=== PATIENT | female | born 1980 | race Caucasian/White ===

== ENCOUNTER 2017-08-30 10:42 | Outpatient (CLI) | payer BC | END 2017-08-30 10:43 | disposition home or self-care (01) | LOC: DTY/OP 10:42 | PROVIDERS: ATTEND Specialist | DX: Z01.818 Encounter for other preprocedural examination (principal); E66.01 Morbid (severe) obesity due to excess calories | CPT/HCPCS: 97802 ==

== ENCOUNTER 2017-09-16 11:27 | Outpatient (CLI) | payer BC ==
[2017-09-16 13:00] LABS: Anion Gap 10 mmol/L (10-20); BUN (Urea Nitrogen) 20 mg/dL (7.0-18.7); Calc. Creatinine Clearance 0 mL/min (70-130); Calcium 10.1 mg/dL (7.8-10.44); Carbon Dioxide 26 mmol/L (22-29); Chloride 104 mmol/L (98-107); Estimated GFR-MDRD Greater than 90
== END 2017-09-16 11:28 | disposition home or self-care (01) ==
LOC: LABBT 11:27
PROVIDERS: ATTEND Specialist
DX: Z01.818 Encounter for other preprocedural examination (principal); E66.01 Morbid (severe) obesity due to excess calories
CPT/HCPCS: 80048; 93005; 93010

== ENCOUNTER 2017-09-16 12:00 | Inpatient (IN) | payer BC ==
--- NOTE | 2017-09-13 14:59 | HP ---
HISTORY OF PRESENT ILLNESS: Bree Corrigan is a 36-year-old female followed Dr. Nigel Donovan and Jena Menjivar, PA moved to this area in 2013. She has had numerous weight loss efforts withou t durable success. She has researched on her own and attended our bariatric seminar and is interest ed in laparoscopic sleeve gastrectomy. She has comorbidities of reflux only occurring since she has been obese prior to becoming overweight. She did not have reflux. She takes PPIs controlling her reflux. She knows her reflux is worse as she gains weight. She has trouble with her weight most of her life and suffers arthralgias, back pain, sleep apnea symptoms, hypertension and wants to have m ore active life and not suffer the comorbidities associated with obesity. Her is very suppo rtive in her weight loss efforts and bariatric endeavors. Although her mother and other family did not live here, they are also very supportive of her bariatric choice. She is interested in laparosc opic sleeve gastrectomy. PAST MEDICAL HISTORY: Hypertension, gastroesophageal reflux disease, on PPIs for the last several y ears controlling her reflux very well. She takes occasional [place] at night. She states her reflux is not severe until she gained weight. She has symptoms of sleep apnea, had a sleep study in [place], it was inconclusive but she knows that as she gains more weight, she has had more dif ficulty breathing. She has problems with degenerative joint disease of the cervical spine, knees an d she is a wearing brace currently for patellar stability. She is undergoing therapy. SOCIAL HISTORY: Patient is treated for bipolar illness. TOBACCO: Tobacco none. Alcohol none. PAST SURGICAL HISTORY: In 2001, wisdom teeth extraction; in 2004, breast reduction; in 2007, tubal ligation; in 2009, hysterectomy without oophorectomy; in 2011, cholecystectomy; in 2012, appendectom y; in 2011, finger tendon and nerve repair; in 2012, pilonidal cyst resection; in 2013, sinuplasty; in 2014, cervical spinal fusion; in 2015, right oophorectomy. MEDICATIONS: Protonix 40 mg a day, spironolactone 50 mg twice a day, Rachel 180 mg p.m., Prozac 30 mg p.m., Topamax 25 mg a day, Lamictal 200 mg p.m., Seroquel XR 150 mg at bedtime, Zocor 10 mg a da y, Flonase twice a day 10 mg. ALLERGIES: VICODIN, PERCOCET, BEE STINGS. REVIEW OF SYSTEMS: Ten point noncontributory. PHYSICAL EXAMINATION: VITAL SIGNS: A 5 feet 5, 130/84, 108, 98.4 degrees, 35.9 BMI, 216 pounds. HEENT: Unremarkable. LUNGS: Clear to auscultation. CARDIAC: Rhythm without murmur or gallop. ABDOMEN: Soft, obese, nontender, no hernias. EXTREMITIES: Unremarkable. SOCIAL HISTORY: The patient is and moved here in 2013. Her is very supportive as i s her family in her bariatric endeavors. She also has exercise-induced asthma. She works at [employer] and stands on her feet most of the day. ASSESSMENT AND PLAN: Morbid obesity, 35.9 BMI 316 pounds. She has tried numerous weight loss effor ts without durable success. Her family is very supportive as is her of her bariatric endeav or. She desires laparoscopic sleeve gastrectomy. She understands the risks and benefits of the pro cedure and consents. She has comorbidities of hypertension, sleep apnea symptoms, arthralgias. Cathryn evans is committed to lifestyle changes and close followup and postoperative support groups to enhanc e success.
--- NOTE | 2017-09-17 05:43 | ADD-HP ---
ADDENDUM HISTORY OF PRESENT ILLNESS: Bree Corrigan is a 37-year-old female who I initially saw on 017 for morbid obesity due to excess calories. COMORBIDITIES: Hypertension, elevated cholesterol, GERD with esophagitis, well controlled medicatio ns, and mild sleep apnea, bipolar affective disorder. BMI on admission 36, 216 pounds. Today visit BMI 36, 209 pounds. SOCIAL HISTORY: The patient has attended a bariatric seminar, met with a dietitian and the psycholo gist and felt to be an excellent candidate. Questions have been answered. She understands the risk s of operation including infection, bleeding, reoperation, and consents. She is dedicated to postop erative followups to optimize success. She hopes to improve her quality of life. Questions have be en answered today. Consents were signed and plan for laparoscopic sleeve gastrectomy next week. Th e exam is unchanged except for 5 foot 4 inches, 216 pounds, 35 BMI. On initial admission today, 209 pounds, 36 BMI. Please see recent history and physical for past history. PHYSICAL EXAMINATION: VUTAL SIGNS: 5 foot 4 inches, 209 pounds, 36 BMI. EYES, EARS, NOSE, AND THROAT: Unremarkable. LUNGS: Clear to auscultation. CARDIAC: Regular rhythm without murmur or gallop. ABDOMEN: Soft, nontender, no masses. EXTREMITIES: Unremarkable. ASSESSMENT AND PLAN: Plan laparoscopic sleeve gastrectomy. She understands the risks and benefits of procedure and consents. Preoperative laboratories obtained and Helicobacter pylori are normal. Thyroid functions are normal. Vitamin D is low at 23 and replacement initiated. White count 4, hem oglobin 13. Comprehensive metabolic profile was normal. Cholesterol 169, triglycerides 47. Iron i s 80. Hemoglobin A1c is 4.8, folate levels 10.2 within normal range. Vitamin B12, 422 within madan l range. Vitamin B1, 147 within normal range.
[2017-09-22] MEDS ORDERED: Heparin 5,000 UNITS/ML VIAL ONE (06:18)
[2017-09-22] MEDS ORDERED: Ketorolac Tromethamine 30 MG/ML VIAL ONE ×2 (06:18→13:09)
[2017-09-22] MEDS ORDERED: CEFAZOLIN/Water 2 GM/20 ML SYRINGE ONE (06:18)
[2017-09-22] MEDS ORDERED: Midazolam HCl 2 mg/2 ml Vial ONE ×2 (06:36→07:04)
[2017-09-22] MEDS ORDERED: Fentanyl 100 MCG/2 ML VIAL ONE ×3 (06:36→13:04)
[2017-09-22] MEDS ORDERED: Bupivacaine PF 0.5% 30 ML VIAL ONE (07:18)
[2017-09-22] MEDS ORDERED: Sodium Chloride 0.9% 100 ML ONE (07:28)
[2017-09-22] MEDS ORDERED: ePHEDrine/0.9% NaCl/PF SYRINGE 50 mg/10 ml ONE (07:55)
[2017-09-22] MEDS ORDERED: Lidocaine 1% PF 5 ML VIAL ONE (07:55)
[2017-09-22] MEDS ORDERED: Glycopyrrolate 0.2 MG/ML 5 ML SYRINGE ONE (07:55)
[2017-09-22] MEDS ORDERED: Propofol 200 MG/20 ML VIAL ONE (07:55)
[2017-09-22] MEDS ORDERED: PHENYLEPHRINE-NS 100 MCG/ML 10 ML SYRINGE ONE (07:55)
[2017-09-22] MEDS ORDERED: Dexamethasone 20 MG/5 ML VIAL ONE (07:55)
[2017-09-22] MEDS ORDERED: Ondansetron HCl/PF 4 MG/2 ML Vial ONE (07:55)
[2017-09-22] MEDS ORDERED: Lidocaine 2% w/Epinephrine 1:200K 20 ML VIAL ONE (08:07)
[2017-09-22] MEDS ORDERED: hydrALAZINE 20 MG/ML VIAL SLOW IVP PRN (09:09)
[2017-09-22] MEDS ORDERED: Ondansetron HCl/PF 4 MG/2 ML Vial IVP PRN (09:09)
[2017-09-22] MEDS ORDERED: diphenhydrAMINE 50 MG/ML VIAL IVP PRN (09:09)
[2017-09-22] MEDS ORDERED: Dextrose 50% Abboject 50 ML SYRINGE SLOW IVP PRN (09:09)
[2017-09-22] MEDS ORDERED: Dextrose 5% in Water 1,000 ML IV PRN (09:09)
[2017-09-22] MEDS ORDERED: Promethazine HCl 25 MG/ML VIAL ONE (09:26)
[2017-09-22] MEDS ORDERED: diphenhydrAMINE 50 MG/ML VIAL ONE (10:57)
--- NOTE | 2017-09-22 11:46 | OP ---
DATE OF PROCEDURE: 09/22/2017 PREOPERATIVE DIAGNOSES: Morbid obesity, 35.9 body mass index, 216 pounds; hypertension; symptoms of sleep apnea; and arthralgias. POSTOPERATIVE DIAGNOSES: Morbid obesity, 35.9 body mass index, 216 pounds; hypertension; symptoms o f sleep apnea; and arthralgias. PROCEDURE: Laparoscopic sleeve gastrectomy, 36 Uzbek bougie, staple line within 3 cm of the pyloru s. SURGEON: John Grande M.D. ANESTHESIA: General. Local 0.25% Marcaine with epinephrine, 60 mL. ESTIMATED BLOOD LOSS: Less than 20 mL. BLOOD TRANSFUSED: None. FINDINGS: Pliable normal liver, normal abdominal cavity, otherwise. PROCEDURE IN DETAIL: The patient was taken to the operating room where in the supine position initi ally then reversed Trendelenburg, abdomen was prepared with ChloraPrep and draped in routine fashion . Local anesthetic infiltrated into skin and subcutaneous tissue about all port sites. Supraumbili pilo incision made at the apex and old supraumbilical scar vertically and carried down through the s kin and subcutaneous tissue. A Veress needle placed percutaneously pneumoperitoneum to 15 mmHg obta ined with the Veress needle, replacing it with a 5 port, video laparoscope inserted. Remainder of t he ports placed under laparoscopic visualization. Bilateral midclavicular subcostal incisions made upper abdomen and the 15 mm port was placed on the patient's left and a 12 port on the patient's rig ht. Bilateral far lateral subcostal incision made and 5 ports placed. Trocar catheter, 5 port used to penetrate the fascia and Brendan liver retractor placed through left subxiphoid stab incision. Liver retracted anteriorly and cephalad exposing the angle of His. LigaSure used to take down the gastrosplenic ligament adjacent to the greater curvature beginning distally and progressing up to t he angle of His, mobilizing the gastrosplenic ligament. Once the entire greater curvature of the st omach had been mobilized up to the angle of His, remaining attachments distally mobilized from the g reater curvature of the stomach within 3 cm of the pylorus. Orogastric tube removed by Anesthesia a nd a 36 Uzbek bougie placed orally into the gastric lumen, visualized laparoscopically, properly po sitioned along the lesser curvature towards the pylorus. A green load staple fire of the antrum per formed within 3 cm of the pylorus, then angled to allow division of the stomach without making it to o tight. A second gold fire performed taking care not to narrow the incisura. Serial fires taken u p towards the angle of His with proper position of the stapler, was carefully visualized and then la paroscopically against the bougie, but not excessively tight leaving enough wound to prevent obstruc tion. Final fires blue load in the upper fundus left lateral to the angle of His to avoid encroachm ent on the esophagus performed completely dividing the stomach removing it through the 15 port and c losing this fascia with [id number] suture of 0 Vicryl GraNee needle visualized laparoscopically . Completion endoscopy performed placing the endoscope per os under direct visualization throughout the esophagus and the gastric sleeve visualizing the pylorus without any obstruction. There was no bleeding. Scope withdrawn, there was no leak. Stomach decompressed and removed. Esophagus appear ed to be normal. Staple line of the gastric sleeve inspected, there was no bleeding. Liver retract or removed under laparoscopic visualization without incident. Pneumoperitoneum and irrigant evacuat ed. All instruments removed and all skin incisions irrigated and approximated with the subdermal 4- 0 Monocryl and DermaGlue applied.
[2017-09-22] MEDS: Acetaminophen 1,000 MG in Premix Bag 1 BAG IVPB SCH ×3 (14:21→23:54)
[2017-09-22] MEDS: Ketorolac Tromethamine 30 MG/ML VIAL IVP SCH ×3 (14:21→23:55)
[2017-09-22 14:28] VITALS: BMI 34.9
[2017-09-22] MEDS: D5 1/2 NS w/20 mEq KCL 1,000 ML IV SCH ×2 (14:34→22:55)
[2017-09-22] MEDS: Fentanyl 100 MCG/2 ML VIAL SLOW IVP PRN ×3 (15:20→20:15)
[2017-09-22] MEDS ORDERED: FLUoxetine HCl 10 MG CAP PO SCH (21:00)
[2017-09-22] MEDS ORDERED: Loratadine 10 MG TAB PO SCH (21:00)
[2017-09-22] MEDS ORDERED: FLU VACC QS2017-18 36 mo. & older 0.5 ML SYRINGE IM ONE (21:00)
[2017-09-22] MEDS ORDERED: Simvastatin 5 MG TAB PO SCH (21:00)
[2017-09-22] MEDS ORDERED: Enoxaparin Sodium 40 MG/0.4 ML SYRINGE SC SCH (21:00)
[2017-09-22] MEDS ORDERED: lamoTRIgine 100 MG TAB PO SCH (21:00)
[2017-09-22] MEDS: Calcium Carbonate 500 MG ChewTAB PO SCH (21:51)
[2017-09-22] MEDS: Spironolactone 25 MG TAB PO SCH (21:51)
[2017-09-22] MEDS: Multivitamin W/ Minerals 1 TAB PO SCH (21:51)
[2017-09-22] MEDS: Topiramate 25 MG TAB PO SCH (21:52)
[2017-09-23] MEDS: Acetaminophen 1,000 MG in Premix Bag 1 BAG IVPB SCH (06:11)
[2017-09-23] MEDS: Ketorolac Tromethamine 30 MG/ML VIAL IVP SCH (06:12)
[2017-09-23 06:49] LABS: #Lymphocytes 1.2 thou/uL (1.20-3.40); #Monocytes 0.7 thou/uL (0.11-0.59); #Neutrophils 7.3 thou/uL (1.40-6.50); %Basophils 0.4 % (0.0-1.0); %Eosinophils 0.4 % (0.0-10.0); %Lymphocytes 13.3 % (21.0-51.0); %Monocytes 7.9 % (0.0-10.0); Hematocrit 38.6 % (36.0-47.0); Mean Platelet Volume 7.8 fL (7.4-10.4); Red Blood Cell (RBC) Count 4.21 mill/uL (4.20-5.40); White Blood Cell (WBC) Count 9.4 thou/uL (4.8-10.8)
[2017-09-23 07:08] LABS: Anion Gap 8 mmol/L (10-20); BUN (Urea Nitrogen) 8 mg/dL (7.0-18.7); Calc. Creatinine Clearance 159 mL/min (70-130); Calcium 8.3 mg/dL (7.8-10.44); Carbon Dioxide 24 mmol/L (22-29); Chloride 110 mmol/L (98-107); Estimated GFR-MDRD Greater than 90
--- NOTE | 2017-09-23 08:40 | RAD ---
LIMITED UPPER GI WITH 15 ML GASTROGRAFIN: Date: 09/23/17 HISTORY: Recent post bariatric surgery, vertical sleeve gastrectomy. FINDINGS: There is prompt passage of contrast from the esophagus into the stomach and proximal small bowel. No contrast extravasation is seen. IMPRESSION: No evidence of obstruction or leak. POS: NADIA
[2017-09-23] MEDS ORDERED: Pantoprazole 40 MG VIAL IVP SCH (09:00)
--- NOTE | 2017-09-23 09:03 | PRG ---
DATE OF SERVICE: 09/23/2017 Ms. Corrigan is doing well after laparoscopic sleeve gastrectomy. Swallow study this morning looked normal. PHYSICAL EXAMINATION: VITAL SIGNS: Temperature 98.3 degrees, 88, 18, 93% saturation, blood pressure 125/75. LUNGS: Clear to auscultation. CARDIAC: Regular rate and rhythm without murmur or gallop. ABDOMEN: Soft, nontender. She complains of pain at the stomach extraction site, left upper quadran t. LABORATORY: White count 9.4, hemoglobin 13. Basic metabolic profile was unremarkable. ASSESSMENT AND PLAN: The patient is doing well status post laparoscopic sleeve gastrectomy. Advanc e diet and discharge home with tramadol trial for oral analgesics, oral Tylenol is effective. Plan discharge home later today if she tolerates liquids.
[2017-09-23] MEDS ORDERED: traMADol HCl 50 MG TAB PO PRN ×2 (09:15)
[2017-09-23] MEDS: Topiramate 25 MG TAB PO SCH (11:28)
--- NOTE | 2017-09-23 11:50 | DIS ---
PREOPERATIVE DIAGNOSES: 1. Morbid obesity, 36.9 body mass index.. 2. Hypertension. 3. Sleep apnea. 4. Arthralgias. PROCEDURES THIS HOSPITALIZATION: Laparoscopic sleeve gastrectomy, 36 Afghan bougie completion endos copy, staple line within 3 cm of the pylorus. HISTORY: Ms. Corrigan underwent preoperative bariatric workup, seen a week prior to her surgery, ad mitted postoperatively after laparoscopic sleeve gastrectomy. Swallow study the next morning was no rmal and she convalesced, tolerated her diet. She has multiple allergies, HYDROCODONE and OXYCODONE . She was given fentanyl perioperatively. She is sent home with Tylenol [id number] tramadol p.r.n. pain. Follow up in my office in 1 week. Diet as explained by preoperative bariatric education course. Ac tivity; encouraged ambulation, up in chair and frequent ambulation.
[2017-09-23] MEDS ORDERED: Acetaminophen 500 MG TAB PO SCH (12:00)
[2017-09-23 12:33] VITALS: BP 114/72; TEMP 97.7
[2017-09-23] MEDS: Calcium Carbonate 500 MG ChewTAB PO SCH (13:03)
[2017-09-23] MEDS: Multivitamin W/ Minerals 1 TAB PO SCH (13:03)
[2017-09-23] MEDS: Spironolactone 25 MG TAB PO SCH (13:03)
== END 2017-09-23 13:55 | disposition home or self-care (01) | DRG 621 ==
LOC: SURG A 09-22 05:36
PROVIDERS: ADMIT Specialist; ATTEND Specialist
PROC: 0DB64Z3 Excision of Stomach, Percutaneous Endoscopic Approach, Vertical (ICD-10-PCS; principal; 2017-09-22)
PROC: 0DJ68ZZ Inspection of Stomach, Via Natural or Artificial Opening Endoscopic (ICD-10-PCS; 2017-09-22)
DX: E66.01 Morbid (severe) obesity due to excess calories (principal); I10 Essential (primary) hypertension; Z68.36 Body mass index [BMI] 36.0-36.9, adult; M25.50 Pain in unspecified joint; E78.00 Pure hypercholesterolemia, unspecified; K21.0 Gastro-esophageal reflux disease with esophagitis; F31.9 Bipolar disorder, unspecified; G47.33 Obstructive sleep apnea (adult) (pediatric)
CPT/HCPCS: 36415; 74241; 80048; 85025; 88307; 88312; 90471; 90682; 90732; 94760; G0008; G0009; J0131; J0694; J1100; J1200; J1644; J1650; J1885; J2001; J2250; J2405; J2550; J2704; J3010; J7050; Q2036; S0020

== ENCOUNTER 2017-12-17 20:58 | Emergency (ER) | payer BC | END 2017-12-18 00:10 | disposition home or self-care (01) | LOC: ERS 20:58 | DX: M54.41 Lumbago with sciatica, right side (principal); I10 Essential (primary) hypertension; J45.909 Unspecified asthma, uncomplicated; F31.9 Bipolar disorder, unspecified | CPT/HCPCS: 99283 ==

== ENCOUNTER 2018-06-27 08:51 | Emergency (ER) | payer BC ==
[2018-06-27] MEDS ORDERED: Lidocaine 1% w/Epinephrine 1:100K 20 ML VIAL ONE (09:51)
[2018-06-27] MEDS ORDERED: Adacel (T-DAP) 0.5 ML VIAL ONE (10:18)
== END 2018-06-27 11:00 | disposition home or self-care (01) ==
LOC: ERS 08:51
DX: S81.012A Laceration without foreign body, left knee, initial encounter (principal); I10 Essential (primary) hypertension; J45.909 Unspecified asthma, uncomplicated; F31.9 Bipolar disorder, unspecified; Z79.899 Other long term (current) drug therapy; W01.0XXA Fall on same level from slipping, tripping and stumbling without subsequent striking against object, initial encounter
CPT/HCPCS: 12001; 90471; 90715; J2001

== ENCOUNTER 2019-06-05 20:01 | Emergency (ER) | payer BC ==
[2019-06-05] MEDS ORDERED: Ketorolac Tromethamine 30 MG/ML VIAL ONE (20:55)
[2019-06-05] MEDS ORDERED: Lidocaine Viscous Sol 2% 15 ml UD Cup ONE (20:55)
[2019-06-05] MEDS ORDERED: Mag-Al Plus 1200 MG/1200 MG/120 MG/30 ML UDCUP ONE (20:55)
[2019-06-05 21:10] LABS: #Basophils 0.1 thou/uL (0.0-0.2); #Eosinphils 0.1 thou/uL (0.0-0.7); #Lymphocytes 1.6 thou/uL (1.20-3.40); #Monocytes 0.4 thou/uL (0.11-0.59); %Basophils 1.1 % (0.0-1.0); %Eosinophils 1.3 % (0.0-10.0); %Lymphocytes 22.5 % (21.0-51.0); %Monocytes 6.1 % (0.0-10.0); Hemoglobin 13.4 g/dL (12.0-16.0); Mean Corpuscular Hemoglobin 30.9 pg (27.0-31.0); Mean Corpuscular Volume 88.2 fL (78.0-98.0); Mean Platelet Volume 7.8 fL (7.4-10.4); Platelet Count 213 thou/uL (130-400); RBC Distribution Width 10.7 % (11.5-14.5); Red Blood Cell (RBC) Count 4.33 mill/uL (4.20-5.40); White Blood Cell (WBC) Count 7.2 thou/uL (4.8-10.8)
[2019-06-05 21:16] LABS: Bilirubin Small (Negative); Blood, Urine Negative (Negative); Clarity Slightly Cloudy (Clear); Glucose, Urine (Dipstick) Negative (Negative); Leukocyte Negative (Negative); Nitrite Negative (Negative); Protein, Urine (Dipstick) 30 mg/dL (Neg-Trace); Urobilinogen 0.2 mg/dL (Less than 2)
[2019-06-05 21:18] LABS: RBC/HPF 0-3 HPF (0-3); WBC/HPF 0-3 HPF (0-3)
[2019-06-05 21:19] LABS: Bacteria/HPF 2+ HPF (None Seen); Mucous/LPF 2+ LPF (<2+)
[2019-06-05 21:22] LABS: Anion Gap 13 mmol/L (10-20); BUN (Urea Nitrogen) 11 mg/dL (7.0-18.7); Calc. Creatinine Clearance 0 mL/min (70-130); Calcium 9.3 mg/dL (7.8-10.44); Carbon Dioxide 28 mmol/L (22-29); Chloride 103 mmol/L (98-107); Estimated GFR-MDRD 81; Glucose 87 mg/dL (70-105); Potassium 3.6 mmol/L (3.5-5.1); Sodium 140 mmol/L (136-145)
--- NOTE | 2019-06-05 22:05 | CT ---
CT ABDOMEN AND PELVIS WITHOUT CONTRAST: HISTORY: Left upper quadrant abdominal pain. History of gastric sleeve procedure and cholecystectomy. Histor y of appendectomy. Left flank pain. TECHNIQUE: Multiple contiguous axial images were obtained in a CT of the abdomen and pelvis without contrast. C oronal reformats were performed. FINDINGS: The patient is status post cholecystectomy. Post surgical changes are seen in the stomach. The live r, kidneys, adrenal glands, spleen, and pancreas are unremarkable, although evaluation is limited wit hout IV contrast. No free air, free fluid, or stranding changes are seen in the abdomen or pelvis. The remaining large and small bowel are unremarkable. No abdominal or pelvic lymphadenopathy is seen. Degenerative changes are seen in the spine. The visualized inferior thorax and abdominal wall soft t issues are unremarkable. IMPRESSION: No evidence of acute intraabdominal/pelvic abnormality. POS: C
== END 2019-06-05 21:57 | disposition home or self-care (01) ==
LOC: SCSER 20:01
DX: B02.9 Zoster without complications (principal); R10.12 Left upper quadrant pain; I10 Essential (primary) hypertension; F31.9 Bipolar disorder, unspecified; Z79.899 Other long term (current) drug therapy
CPT/HCPCS: 36415; 74176; 80048; 81003; 81015; 85025; 96372; J1885

== ENCOUNTER 2019-10-28 16:47 | Emergency (ER) | payer BC ==
[~2019-10-28 16:47] MED LIST: Iopamidol 370 76% 50 ML VIAL FS ONE
[2019-10-28 17:20] LABS: Bilirubin Negative (Negative); Blood, Urine Negative (Negative); Clarity Extra Turbid (Clear); Glucose, Urine (Dipstick) Normal (Negative); Leukocyte Negative Leu/uL (Negative); Nitrite Negative (Negative); Protein, Urine (Dipstick) Negative (Neg-Trace); Urobilinogen Normal mg/dL (Less than 2)
[2019-10-28] MEDS ORDERED: Acetaminophen 500 MG TAB ONE (17:49)
[2019-10-28 18:57] LABS: #Eosinphils 0.1 thou/uL (0.0-0.7); #Lymphocytes 1.3 thou/uL (1.20-3.40); #Monocytes 0.4 thou/uL (0.11-0.59); #Neutrophils 4.4 thou/uL (1.40-6.50); %Basophils 0.7 % (0.0-1.0); %Eosinophils 1.8 % (0.0-10.0); %Lymphocytes 21.3 % (21.0-51.0); %Monocytes 6.3 % (0.0-10.0); Hemoglobin 13.4 g/dL (12.0-16.0); Mean Corpuscular HGB CONC 33.2 g/dL (32.0-36.0); Mean Corpuscular Hemoglobin 30.8 pg (27.0-31.0); Mean Corpuscular Volume 92.6 fL (78.0-98.0); Mean Platelet Volume 7.6 fL (7.4-10.4); Platelet Count 237 thou/uL (130-400); RBC Distribution Width 10.8 % (11.5-14.5); Red Blood Cell (RBC) Count 4.35 mill/uL (4.20-5.40); White Blood Cell (WBC) Count 6.3 thou/uL (4.8-10.8)
--- NOTE | 2019-10-28 19:19 | RAD ---
AP CHEST: 10/28/19 HISTORY: Right upper quadrant pain. Lung kim are clear. Heart and mediastinum unremarkable. IMPRESSION: Negative portable chest. POS: AGW
[2019-10-28 19:23] LABS: ALT (SGPT) 11 U/L (8-55); AST (SGOT) 14 U/L (5-34); Albumin 4.2 g/dL (3.5-5.0); Alkaline Phosphatase 75 U/L (40-110); Anion Gap 10 mmol/L (10-20); BUN (Urea Nitrogen) 11 mg/dL (7.0-18.7); Bilirubin, Total 0.2 mg/dL (0.2-1.2); CK (CPK) 56 U/L (29-168); Calc. Creatinine Clearance 0 mL/min (70-130); Calcium 9.2 mg/dL (7.8-10.44); Carbon Dioxide 29 mmol/L (22-29); Chloride 103 mmol/L (98-107); Estimated GFR-MDRD 86; Globulin 1.8 g/dL (2.4-3.5); Glucose 98 mg/dL (70-105); Lipase 46 U/L (8-78); Potassium 4.1 mmol/L (3.5-5.1); Sodium 138 mmol/L (136-145)
--- NOTE | 2019-10-28 20:44 | CT ---
CT ABDOMEN AND PELVIS WITH CONTRAST: 10/28/19 INDICATIONS: Right upper quadrant pain. Right flank pain. Comparison made to CT abdomen and pelvis from 07/10/15. Lung bases are clear. Liver, and spleen appear unremarkable. Post cholecystectomy change again noted. Mild prominence of th e extrahepatic bile duct is stable. Postoperative changes are seen in the stomach which are new since prior exam suggesting possible iggy dejan sleeve or other gastric procedure. Kidneys are unremarkable. There is no evidence of hydronephrosis or urinary calculus. Urinary bladder is mildly distended and appears unremarkable. Small 1 cm cyst posterior left renal cortex again note d. Small cyst inferior right kidney is again noted. Small bowel loops show nonspecific distention. Mild fluid filled distention of distal small bowel loo ps in the pelvis. No small bowel dilatation. Surgical clips in the right lower quadrant suggest prior appendectomy. Stool throughout the colon. Aorta normal caliber. No adenopathy or free fluid. IMPRESSION: Nonspecific fluid filled distention of small bowel loops in the lower abdomen and pelvis. Prominent s tool throughout the colon. No acute intra-abdominal process. POS: AGW
== END 2019-10-28 22:34 | disposition home or self-care (01) ==
LOC: ERS 16:47
DX: M54.5 Low back pain (principal); I10 Essential (primary) hypertension; J45.909 Unspecified asthma, uncomplicated; F31.9 Bipolar disorder, unspecified; Z79.899 Other long term (current) drug therapy
CPT/HCPCS: 36415; 71045; 74177; 80053; 81003; 82550; 83605; 83690; 84484; 85025; 87086; 93005; Q9967